=== PATIENT | female | born 1950 | race Caucasian/White ===

== ENCOUNTER 2018-11-15 06:34 | Inpatient (IN) ==
[2018-11-10 11:55] LABS: Blood Urea Nitrogen 15 mg/dl (8-23)
[2018-11-10 12:00] LABS: Appearance,Urine CLEAR; Bilirubin,Urine NEG (NEG); Color,Urine YELLOW; Glucose,Urine (UA) NEGATIVE (NEG); Leukocyte Esterase,Urine NEG /uL (NEG); Protein,Urine NEG (NEG); Specific Gravity,Urine 1.016 (1.000-1.035); Urine Blood NEG mg/dL (<0.03); Urobilinogen,Urine NEG (NEG)
[2018-11-10 12:06] LABS: Basophils # (Auto) 0 K/mcL (0.0-0.3); Basophils % (Auto) 0.1 % (0.0-2.0); Eosinophils # (Auto) 0.1 K/mcL (0.0-0.7); Eosinophils % (Auto) 2.5 % (0.0-7.0); Granulocytes % (Auto) 46.9 % (38.0-78.0); Lymphocytes # (Auto) 2.5 K/mcL (1.5-4.8); Lymphocytes % (Auto) 43.1 % (15.5-49.0); Mean Cell Volume 88.7 fL (80.0-100.0); Mean Corpuscular HGB Conc 33.4 g/dL (31.0-36.0); Monocytes # (Auto) 0.4 K/mcL (0.1-0.9); Monocytes % (Auto) 7.4 % (1.0-12.0); Platelet Count 206 K/mcL (140-440); RBC 4.96 M/mcL (4.00-5.20); Red Cell Distribution Width 12.9 % (11.5-14.5)
[2018-11-10 13:19] LABS: Estimated Average Glucose(eAG) 108 mg/dL; Hemoglobin A1C 5.4 % HGB (4.0-6.0)
[~2018-11-15 06:34] MED LIST: 0.9 % SODIUM CHLORIDE 9 ML, KETOROLAC 30 MG, ROPIVACAINE HCL/PF 49.5 ML, EPINEPHrine 0.... IJ SCH; CELECOXIB 200 MG CAPSULE PO SCH; PREGABALIN 75 MG CAPSULE PO SCH; ceFAZolin 2 GM in DEXTROSE 5% IN WATER 50 ML IV SCH; oxyCODONE 10 MG TAB.ER.12H PO SCH
[2018-11-15] MEDS ORDERED: ROPIVACAINE HCL/PF 20 ML VIAL IJ ONE (08:50)
[2018-11-15] MEDS ORDERED: TRANEXAMIC ACID 1,000 MG/10 ML VIAL IV ONE (08:50)
[2018-11-15] MEDS ORDERED: DEXAMETHASONE 4 MG/ML VIAL IV ONE (08:50)
[2018-11-15] MEDS ORDERED: ePHEDrine 50 MG/ML AMPUL IV ONE (08:50)
[2018-11-15] MEDS ORDERED: LIDOCAINE HCL/PF 100 MG/5 ML SYRINGE IV ONE (08:50)
[2018-11-15] MEDS ORDERED: MIDAZOLAM 2 MG/2 ML VIAL IV ONE (08:50)
[2018-11-15] MEDS ORDERED: PROPOFOL 200 MG/20 ML VIAL IV ONE (08:50)
[2018-11-15] MEDS ORDERED: IPRATROPIUM/ALBUTEROL 3 ML AMPUL.NEB NEB PRN (10:03)
[2018-11-15] MEDS ORDERED: METHOCARBAMOL 1,000 MG/10 ML VIAL IV PRN (10:03)
[2018-11-15] MEDS ORDERED: FLUMAZENIL 0.1 MG/ML ML IV PRN (10:03)
[2018-11-15] MEDS ORDERED: fentaNYL 100 MCG/2 ML VIAL IV PRN (10:03)
[2018-11-15] MEDS ORDERED: METOPROLOL TARTRATE 5 MG/5 ML VIAL IV PRN (10:03)
[2018-11-15] MEDS ORDERED: PROMETHAZINE 25 MG/ML VIAL IV PRN (10:03)
[2018-11-15] MEDS ORDERED: ONDANSETRON 4 MG/2 ML VIAL IV PRN ×2 (10:03→10:22)
[2018-11-15] MEDS ORDERED: HYDROmorphone 2 MG/ML VIAL IV PRN ×2 (10:03→10:22)
[2018-11-15] MEDS ORDERED: ACETAMINOPHEN 1,000 MG/100 ML BOTTLE IV ONE (10:03)
[2018-11-15] MEDS ORDERED: ePHEDrine 50 MG/ML AMPUL IV PRN (10:03)
[2018-11-15] MEDS ORDERED: ATROPINE SULFATE 0.4 MG/ML VIAL IV PRN (10:03)
[2018-11-15] MEDS ORDERED: NALOXONE HCL 0.4 MG/ML VIAL IV PRN (10:03)
[2018-11-15] MEDS ORDERED: MEPERIDINE 25 MG/ML SYRINGE IV PRN (10:03)
[2018-11-15] MEDS ORDERED: diphenhydrAMINE 50 MG/ML VIAL IV PRN (10:03)
[2018-11-15] MEDS ORDERED: LACTATED RINGERS 1,000 ML IV SCH (10:15)
[2018-11-15] MEDS ORDERED: BISACODYL 10 MG SUPP.RECT PR PRN (10:22)
[2018-11-15] MEDS ORDERED: BENZOCAINE/MENTHOL 1 LOZENGE PO PRN (10:22)
[2018-11-15] MEDS ORDERED: FLEETS ADULT ENEMA PR PRN (10:22)
[2018-11-15] MEDS ORDERED: MAGNESIUM HYDROXIDE 30 ML ORAL.SUSP PO PRN (10:22)
[2018-11-15] MEDS ORDERED: TRANEXAMIC ACID 1,000 MG/10 ML VIAL IV SCH (10:22)
[2018-11-15] MEDS ORDERED: POLYETHYLENE GLYCOL 3350 17 GM PACKET PO PRN (10:22)
--- NOTE | 2018-11-15 10:22 | Brief Operative Note ---
Date of procedure: 11/15/18 Pre-op diagnosis: L knee severe OA Post-op diagnosis: same Procedure: Left robotic assisted total knee arthroplasty Grafts/Implants: Yes ([place] Triathlon CR 4 femur, 4 tibia, 10mm insert, 31 patella) Anesthesia: spinal, GLMA Findings: severe multicompartment arthritis Complications: none Surgeon: Yao Ni Coke Worker: Qamar Tamez Estimated blood loss (cc): 50 Specimens Removed/Pathology: none sent Condition: stable Disposition: PACU
[2018-11-15] MEDS ORDERED: ALBUTEROL SULFATE 1 PUFF INHALER INH PRN (10:25)
--- NOTE | 2018-11-15 11:06 | Operative Note ---
DATE OF OPERATION: 11/15/2018 PREOPERATIVE DIAGNOSIS: Severe multi-compartment left knee osteoarthritis. POSTOPERATIVE DIAGNOSIS: Severe multi-compartment left knee osteoarthritis. PROCEDURE PERFORMED: Left robotic-assisted total knee arthroplasty placing a [place] Triathlon size 4 cruciate retaining femoral component, size 4 tibial baseplate, 10 mm X3 tibial insert with a 31 mm patellar button. SURGEON: Yao Ni MD PROFESSOR OF PHYSICAL EDUCATION: Alvino Tamez PA-C ANESTHESIA: Spinal plus general. DRAINS: None. SPECIMENS: Bone cuts, which were discarded. BLOOD LOSS: 50 mL COMPLICATIONS: None. POSTOPERATIVE CONDITION: Stable. INDICATIONS FOR SURGERY: This is a 68-year-old female who has had longstanding progressive worsening knee pain. Radiographs showed advanced multi-compartment arthritis. FINDINGS AT SURGERY: She had full-thickness cartilage loss off of the medial and patellofemoral compartments. Post implantation showed good limb alignment, patellar tracking, and joint stability. PROCEDURE IN DETAIL: The patient was seen preoperatively. Informed consent had been obtained after discussion of risks and benefits of surgery. Risks including, but not limited to, bleeding; infection, possibly requiring implant removal, prolonged IV antibiotics; injury to nerves, blood vessels, and other surrounding structures; anesthetic risks; incomplete or no resolution of symptoms; stiffness; swelling; pain; instability; DVT and pulmonary embolus risks; and the possibility of needing further revision joint surgery. She understood these risks and wished to proceed. Correct operative site was marked. The patient received spinal anesthesia in preop holding. She was then taken to the operating room and LMA general given. Left lower extremity was carefully prepped and draped in normal sterile fashion and a timeout was performed verifying patient name, operative site, and plan. Esmarch was used to exsanguinate the extremity and tourniquet was inflated to 300 mmHg. Ioban was used to cover all skin surfaces and a midline incision was made with scalpel through skin and subcutaneous tissue. IrriSept was irrigated and then a medial parapatellar arthrotomy made. Subperiosteal exposure was done of the anterior, medial proximal tibia. Anterior horns of the menisci were removed and ACL was transected. Femoral and tibial checkpoints were placed. Two stab incisions were made over the femur and two over the tibia and bicortical pins placed and the arrays connected. We did our hip center of rotation check. The green probe was used to identify our medial and lateral malleolus. We double checked our femoral and tibial check points. Blue probe was used to do our mapping. A rongeur was used to remove osteophytes. We then checked our flexion, extension gaps. Even with 3 degrees of varus on the tibia we were only able to get down to a 17 mm medially in flexion and extension and 19 mm laterally in flexion and extension. I did use a Mehta to try and release the deep MCL more distally and it really made no significant difference, so we went ahead and proceeded with bone cuts using the robotic arm. After bone cuts were completed, we prepared the tibia, which we externally rotated maximally and this was pinned into place. Boss reamer and keel punch were used to prepare and then a keeled tibial baseplate was placed. Posterior horns of the menisci were removed. We elevated the femur and used a curved osteotome to remove posterior osteophytes. A femur trial was placed and then a 9 insert trial was placed. Patella was prepared in a freehand technique, initially measuring 22 mm, after resection 12 mm. We sized this to a 31, which was medialized maximally. Holes were drilled and then a trial placed. Lateral facetectomy was performed with the saw and then we checked our patellar tracking and it tracked very well without tilt or subluxation, so we removed trial implants. Definitive implants were opened except for the tibial insert. We irrigated the joint with IrriSept, after waiting a minute we pulse lavaged copiously with saline. CO2 gun was used to clean and dry the cancellous bone surface and then we cemented the tibia. Excess cement was removed and then we cemented the femur and again excess cement removed. A 9 insert trial was placed. The knee was taken into extension. The patellar button was then cemented. We then removed our femoral and tibial checkpoints. We checked our extension which was about 11 degrees. I was able to manipulate this down to about 5 degrees. We filled the joint with IrriSept and then injected pain cocktail in the pericapsular and subcutaneous tissues. After cement had fully hardened, we felt due to the 19 mm lateral gap and 17 medial that if we split the difference with a 10 mm insert that would be an 18 mm gap which would be in between both. We removed the 9 insert trial. We injected pain cocktail in the posterior capsule. We irrigated with IrriSept, and then a 10 insert was opened. This was impacted and carefully verified to be fully seated. We checked our range of motion and stability, which was good, so we went ahead and did a final pulse lavage with saline in the joint. We then placed the knee in about 45 degrees of flexion. Interrupted #2 FiberWire [id number] were used around the superior quadrant of the patella, interrupted #1 Vicryl [id number] around the inferior quadrant, running #1 Vicryl for the patellar tendon and quad tendon. Final IrriSept irrigation was done, after a minute final pulse lavage, and then 2-0 Monocryl for subcutaneous and melissa for skin. Xeroform sterile dressings were applied. Tourniquet was released. The patient was awakened, extubated, and transferred to recovery in stable condition. BJB:germaine Job ID: [id number] Doc ID: [id number] Yao Ni MD
--- NOTE | 2018-11-15 11:25 | XRay Report ---
CLINICAL INFORMATION: Post-op total knee COMPARISON: None. FINDINGS: Total knee prostheses is anatomically aligned. No osseous abnormality. Periarticular soft tissue swelling and gas seen as expected. IMPRESSION: Negative Interpreted and Authenticated by: Jules Raygoza 11/15/18
[2018-11-15] MEDS: 0.45 % SODIUM CHLORIDE 1,000 ML IV SCH ×2 (12:42→20:59)
[2018-11-15] MEDS: HYDROcodone/APAP 10/325MG TABLET PO PRN ×2 (14:31→20:51)
[2018-11-15] MEDS: KETOROLAC 15 MG/ML VIAL IV SCH ×2 (14:32→18:04)
[2018-11-15] MEDS: 0.9 % SODIUM CHLORIDE 10 ML SYRINGE IV SCH ×2 (14:33→22:01)
[2018-11-15] MEDS: ceFAZolin 1 GM VIAL IV SCH (16:05)
[2018-11-15] MEDS: BENZTROPINE 1 MG TABLET PO SCH (20:52)
[2018-11-15] MEDS: DOCUSATE SODIUM 100 MG CAPSULE PO SCH (20:54)
[2018-11-15] MEDS ORDERED: SENNOSIDES 1 TABLET PO SCH (21:00)
[2018-11-15] MEDS ORDERED: SIMVASTATIN 20 MG TABLET PO SCH (21:00)
[2018-11-15] MEDS: ASPIRIN 325 MG ENTERIC COATED TABLET PO SCH (21:57)
[2018-11-16] MEDS: KETOROLAC 15 MG/ML VIAL IV SCH ×2 (00:41→05:41)
[2018-11-16] MEDS: ceFAZolin 1 GM VIAL ONE ×2 (00:41→00:59)
[2018-11-16] MEDS: ceFAZolin 1 GM VIAL IV SCH (00:58)
[2018-11-16] MEDS: 0.45 % SODIUM CHLORIDE 1,000 ML IV SCH (05:41)
[2018-11-16] MEDS: 0.9 % SODIUM CHLORIDE 10 ML SYRINGE IV SCH (05:42)
[2018-11-16] MEDS ORDERED: PANTOPRAZOLE 40 MG TABLET PO SCH (07:30)
--- NOTE | 2018-11-16 07:44 | Discharge Summary ---
Providers - Providers Patient information: Note initiated : 11/16/18 at 7:41 am Service Date, if different from initiated Date: [] Patient: Jeniffer Chambers 68 y/o F admitted on 11/15/18 for Left Robotic Total Knee Arthroplasty. Chief Complaint: [] Discharge date: 11/16/18 Hospitalization Hospital course: Pt was admitted for a R TKA. Pt underwent the procedure on the day of admission. Pt spent one night on the floor prior to discharge for IV pain meds, IV abx, and PT. Pt will take ASA for DVT prophylaxis and attend out-pt PT. f/u in 2 weeks. Discharge diagnosis: L knee OA Exam - Exam Clean and dry: Yes Weight bearing status: as tolerated Ortho Discharge - TKA - Patient Instructions Diet: Regular Diet Activity: activity as tolerated Total Knee Protocol: For Total Knee: Start ROM KATJA with stationary bike or rocking chair. Work on gaining full extension of knee. Posterior dislocation precautions provided. Hip abductor strengthening and gait training instructions provided. Apply Cryocuff as instructed. Dressing Care: May shower in 2 days - Follow Up Plan Follow Up Appointments: Qamar Tamez PA-C [Physician [employer] Technician] - 11/30/18 10:40 am Disposition: Home, Self-Care Prognosis: Good Rehab Potential: Good Overall status at discharge: patient is progressing back to baseline - Orders For Discharge Prescriptions: Aspirin [Ecotrin] 325 mg PO BID #30 tab.ec HYDROcodone/APAP 10/325MG [[place] 10-325Mg] 1 - 2 tab PO Q4HP PRN #90 tab PRN Reason: Pain Level 3-6 Pending Studies Resuscitation Status Full Code Diet Regular Diet Start TueNov 15 1023 Hydrocodone Bitart/Acetaminophen ([place] 10/325mg) 0 tab PO Q4HP PRN PRN Reason: PAIN LEVEL 3-6 Last Admin: 11/15/18 20:51 Dose: 1 tab Documented by: Admin: 11/15/18 14:31 Dose: 1 tab Documented by: TAL Cosigned by: [email or web address] Aspirin (Ecotrin) 325 mg PO BID [facility] Last Admin: 11/15/18 21:57 Dose: 325 mg Documented by: RACQUEL Benztropine Mesylate (Cogentin) 0.5 mg PO BID [facility] Last Admin: 11/15/18 20:52 Dose: 0.5 mg Documented by: RACQUEL Docusate Sodium (Colace) 100 mg PO BID [facility] Last Admin: 11/15/18 20:54 Dose: 100 mg Documented by: RACQUEL Hydromorphone HCl (Dilaudid) 0 mg IV Q2HP PRN PRN Reason: PAIN LEVEL > 6 Last Admin: 11/15/18 15:11 Dose: 1 mg Documented by: FABIÁN Sodium Chloride (Sodium Chloride 0.45%) 1,000 mls @ 100 mls/hr IV .Q10H [facility] Last Infusion: 11/16/18 07:16 Dose: 0 mls/hr Documented by: Admin: 11/16/18 05:41 Dose: 100 mls/hr Documented by: Infusion: 11/16/18 05:41 Dose: 100 mls/hr Documented by: Admin: 11/15/18 20:59 Dose: 100 mls/hr Documented by: Infusion: 11/15/18 20:59 Dose: 100 mls/hr Documented by: Admin: 11/15/18 12:42 Dose: 100 mls/hr Documented by: [email or web address] Ketorolac Tromethamine (Toradol) 15 mg IV Q6 [facility] Stop: 11/17/18 06:01 Last Admin: 11/16/18 05:41 Dose: 15 mg Documented by: Admin: 11/16/18 00:41 Dose: 15 mg Documented by: Admin: 11/15/18 18:04 Dose: 15 mg Documented by: Admin: 11/15/18 14:32 Dose: 15 mg Documented by: TAL Cosigned by: [email or web address] Pantoprazole Sodium (Protonix) 40 mg PO QAMAC [facility] Last Admin: 11/16/18 07:34 Dose: 40 mg Documented by: FABIÁN Senna (Senokot) 2 tab PO [facility] Last Admin: 11/15/18 20:54 Dose: 2 tab Documented by: RACQUEL Simvastatin (Zocor) 20 mg PO HS [facility] Last Admin: 11/15/18 20:51 Dose: 20 mg Documented by: RACQUEL Sodium Chloride (Saline Flush) 10 ml IV Q8 [facility] Last Admin: 11/16/18 05:42 Dose: Not Given Documented by: Admin: 11/15/18 22:01 Dose: Not Given Documented by: Admin: 11/15/18 14:33 Dose: Not Given Documented by: TAL Shift Summary 11/16/18 04:24 Shift Summary by Shahida Gramajo a/o x4, s/p left total knee, denies ny tingling or numbness, dressing to site c/d/i, uses fww x1 stand by assist, good po intake, voiding well, no bm, plassing flatus, iv to left hand with 1/2 ns at 100 cc/hr, given sandwich and cola with several coffee's at bedtime,given norco for c/o pain and receiving toradol q 6 hr x 8 doses. Initialized on 11/16/18 04:24 - END OF NOTE
[2018-11-16] MEDS: DOCUSATE SODIUM 100 MG CAPSULE PO SCH (08:35)
[2018-11-16] MEDS: BENZTROPINE 1 MG TABLET PO SCH (08:35)
[2018-11-16] MEDS: ASPIRIN 325 MG ENTERIC COATED TABLET PO SCH (08:35)
[2018-11-16] MEDS: HYDROcodone/APAP 10/325MG TABLET PO PRN (08:39)
[2018-11-16] MEDS ORDERED: lamoTRIgine 100 MG TABLET PO SCH (09:00)
[2018-11-16] MEDS ORDERED: CITALOPRAM 20 MG TABLET PO SCH (09:00)
== END 2018-11-16 10:30 | disposition home or self-care (01) | DRG 470 ==
LOC: MEDSUR 06:34
PROVIDERS: ADMIT Orthopaedic Surgery; ATTEND Orthopaedic Surgery